=== PATIENT | female | born 1990 | race Caucasian/White ===

== ENCOUNTER 2017-01-23 06:56 | Emergency (ER) | payer MEDICAID, OTHER ==
[~2017-01-23] VITALS: Ht 154.9 cm; Wt 62.0 kg
[~2017-01-23 06:56] MED LIST: CEPH500C3 PO; LORT7.5T3 PO; Z.0.NO CURRENT MEDS; ZOFR4TAB3 SL
[2017-01-23 07:05] VITALS: BP 113/75; PULSE 74; RESP 16; TEMP 98.1; O2SAT 99
[2017-01-23] MEDS ORDERED: PENI500T PO (07:19)
[2017-01-23] MEDS ORDERED: MAGICADU2 SWISH-SPIT (07:19)
[2017-01-23] MEDS ORDERED: IBUP-232 PO (07:19)
--- NOTE | 2017-01-23 07:19 | PD ---
HPI Chief Complaint: Oral / Dental Pain or Problem Time Seen by Provider: 07:12 Travel History International Travel<30 days: No Contact w/Intl Traveler<30days: No Traveled to known affect area: No History of Present Illness HPI Patient is a 26-year-old female presents emergency department for evaluation of right lower dental pain radiating to her ear for the past week. Patient states she has not seen a dentist in many years. Continues to smoke. Denies any fever denies and difficulty swallowing denies any neck pain. This pain has been gradually worsening, moderate in severity, aching, radiation as above. PFSH Past Medical History Medical History: Denies Significant Hx Diminished Hearing: No Headaches: Yes Immunizations Current: Yes ?: Not : 1 Para: 0 Miscarriage: 0 : 0 Past Surgical History Section: Yes Social History Alcohol Use: No Tobacco Use: Yes (1 PPD) Substance Use: No Allergies-Medications (Allergen,Severity, Reaction): Coded Allergies: No Known Allergies (Verified Adverse Reaction, Unknown, 01/23/17) Reported Meds & Prescriptions Reported Meds & Active Scripts Active Penicillin V Potassium 500 Mg Tab 500 Mg PO Q6H 7 Days Ibuprofen 600 Mg Tab 600 Mg PO Q6H PRN Magic Mouthwash Adult Liq (Multi-Ingredient Mouthwash/Gargle) 120 Ml Susp 5 Ml SWISH-SPIT ACHS Each 5mL contains: Nystatin 200,000units, Diphenhydramine 4.25mg, Viscous Lidocaine 10mg, Flores syrup 0.8 mL Review of Systems Except as stated in HPI: all other systems reviewed are Neg Physical Exam Narrative GENERAL: Well-nourished, well-developed patient. SKIN: Focused skin assessment warm/dry. HEAD: Normocephalic. EYES: No scleral icterus. No injection or drainage. ENT: TMs clear bilaterally, no facial swelling appreciated, no lymphadenopathy, neck is supple, the anterior portion of the right mandibular second molar is deep carry nerve roots probably exposed. No discernible abscess appreciated. NECK: Supple, trachea midline. No JVD or lymphadenopathy. CARDIOVASCULAR: Regular rate and rhythm without murmurs, gallops, or rubs. RESPIRATORY: Breath sounds equal bilaterally. No accessory muscle use. GASTROINTESTINAL: Abdomen soft, non-tender, nondistended. MUSCULOSKELETAL: No cyanosis, or edema. BACK: Nontender without obvious deformity. No CVA tenderness. Data Data Last Documented VS Vital Signs Date Time Temp Pulse Resp B/P (MAP) Pulse Ox O2 Delivery O2 Flow Rate FiO2 01/23/17 07:05 98.1 74 16 113/75 (88) 99 Orders Orders Ed Discharge Order (01/23/17 07:20) Tramadol (Ultram) (01/23/17 07:30) MDM Medical Decision Making Medical Screen Exam Complete: Yes Emergency Medical Condition: Yes Differential Diagnosis dental pain, dental abscess, otitis, ear pain, jaw pain. Narrative Course Patient roomed in emergency department, isolated dental caries to the right second molar, recommended she follow up with a dentist, will place on him. Antibiotics for possible apical abscess or early otitis been seen. She is stable for discharge. Discussed pain management and return to ED criteria. Diagnosis Primary Impression: Ear pain, right Med/Other Pt SpecificInfo: Prescription(s) given Scripts Penicillin V Potassium (Penicillin V Potassium) 500 Mg Tab 500 MG PO Q6H for Infection for 7 Days, #28 TAB 0 Refills Prov: Hany Ribeiro MD 01/23/17 Ibuprofen (Ibuprofen) 600 Mg Tab 600 MG PO Q6H Y for Pain/Inflammation, #4030 TAB 0 Refills Prov: Hany Ribeiro MD 01/23/17 Jmpsfvox-Bqyenhpzrjhycmh-Bqrekoazy Liq (Magic Mouthwash Adult Liq) 120 Ml Susp 5 ML SWISH-SPIT ACHS for Mouth sores, #120 ML 0 Refills Each 5mL contains: Nystatin 200,000units, Diphenhydramine 4.25mg, Viscous Lidocaine 10mg, Flores syrup 0.8 mL Prov: Hany Ribeiro MD 01/23/17 Disposition: 01 DISCHARGE HOME Condition: Stable Hany Ribeiro MD Jan 23, 2017 07:19
[2017-01-23] MEDS ORDERED: traMADol HCL 50 MG TAB PO ONE (07:30)
== END 2017-01-23 08:17 | disposition home or self-care (01) ==
LOC: PHED 06:56
DX: H92.01 Otalgia, right ear (principal); K02.9 Dental caries, unspecified
CPT/HCPCS: 99283

== ENCOUNTER 2017-06-29 18:13 | Emergency (ER) | payer MEDICAID ==
[~2017-06-29 18:13] MED LIST changes: -CEPH500C3 PO; +IBUP-232 PO; -LORT7.5T3 PO; +MAGICADU2 SWISH-SPIT; +PENI500T PO; -Z.0.NO CURRENT MEDS; -ZOFR4TAB3 SL
[2017-06-29 18:29] VITALS: BP 126/67; PULSE 88; RESP 20; TEMP 98.6; O2SAT 96
[2017-06-29] MEDS ORDERED: ROBA750T PO (19:16)
[2017-06-29] MEDS ORDERED: PRED20 PO (19:16)
--- NOTE | 2017-06-29 19:17 | PD ---
HPI Chief Complaint: Musculoskeletal Complaint Time Seen by Provider: 18:47 Travel History International Travel<30 days: No Contact w/Intl Traveler<30days: No Traveled to known affect area: No History of Present Illness HPI This is a 27-year-old female here with complaint of right arm pain that radiates from the shoulder down into the hand. Pain is intermittent and described as burning. Occasional tingling into the fingertips. Worse at night while sleeping. Denies weakness of the extremity. No swelling. No fever chills. Denies any history of neck injury or neck pain. She has an appointment for follow-up with neurosurgeon as this was previously diagnosed as cervical radiculopathy. Appointment is not until July 23. [facility] Past Medical History Medical History: Denies Significant Hx Diminished Hearing: No Headaches: Yes Immunizations Current: Yes Tetanus Vaccination: > 5 Years Influenza Vaccination: No ?: Not LMP: APPROX 3 WEEKS AGO : 1 Para: 0 Miscarriage: 0 : 0 Past Surgical History Section: Yes Social History Alcohol Use: No Tobacco Use: Yes (1 PPD) Substance Use: No Allergies-Medications (Allergen,Severity, Reaction): Coded Allergies: No Known Allergies (Verified Adverse Reaction, Unknown, 01/23/17) Reported Meds & Prescriptions Reported Meds & Active Scripts Active No Active Prescriptions or Reported Medications Review of Systems Except as stated in HPI: all other systems reviewed are Neg General / Constitutional: No: Fever Eyes: No: Visual changes HENT: No: Headaches Cardiovascular: No: Chest Pain or Discomfort Respiratory: No: Shortness of Breath Gastrointestinal: No: Abdominal Pain Genitourinary: No: Dysuria Musculoskeletal: Positive: Pain (Intermittent right upper extremity pain) Physical Exam Narrative GENERAL: Alert and well-appearing 27-year-old female SKIN: Warm and dry. HEAD: Normocephalic. EYES: No scleral icterus. No injection or drainage. NECK: Supple, trachea midline. No midline spine tenderness. Freely moves the neck. CARDIOVASCULAR: Regular rate and rhythm RESPIRATORY: Breath sounds equal bilaterally. No accessory muscle use. GASTROINTESTINAL: Abdomen soft, non-tender, nondistended. MUSCULOSKELETAL: No cyanosis, or edema. RUE: Patient points to the lateral aspect of the humerus and forearm as the site of the pain. The area is nontender to palpation. She has full range of motion of the shoulder, elbow, wrist, fingers. Normal strength. She has normal sensation with sharp dull differentiation. Equal hand grasp. Palpable pulses. Brisk cap refill. BACK: Nontender without obvious deformity. No CVA tenderness. Data Data Last Documented VS Vital Signs Date Time Temp Pulse Resp B/P (MAP) Pulse Ox O2 Delivery O2 Flow Rate FiO2 06/29/17 18:29 98.6 88 20 126/67 (86) 96 MDM Medical Decision Making Medical Screen Exam Complete: Yes Emergency Medical Condition: Yes Differential Diagnosis Cervical radiculopathy, carpal tunnel, other Narrative Course 27-year-old female here with nontraumatic right upper extremity pain. She is awaiting appointment for follow-up with neurosurgery for presumed cervical radiculopathy. She had previously negative x-rays of the cervical spine. The extremity is neurovascularly intact. She has normal strength and sensation. There is no swelling or signs of infection. She will be treated with steroids and muscle relaxers. She is given the name and number Diagnosis Primary Impression: Radiculopathy affecting upper extremity Referrals: Hua Chauhan MD Scripts Methocarbamol (Robaxin) 750 Mg Tab 750 MG PO QID for Muscle Spasm, #12 TAB 0 Refills Prov: Frieda Cedeno 06/29/17 Prednisone (Prednisone) 20 Mg Tab 40 MG PO DAILY, #10 TAB 0 Refills Take 40 mg (2 tablets) daily for 5 days Prov: Frieda Cedeno 06/29/17 Disposition: 01 DISCHARGE HOME Condition: Stable Frieda Cedeno Jun 29, 2017 19:17
== END 2017-06-29 19:27 | disposition home or self-care (01) ==
LOC: PHEFT 18:13
DX: M54.10 Radiculopathy, site unspecified (principal); F17.200 Nicotine dependence, unspecified, uncomplicated
CPT/HCPCS: 99283